=== PATIENT | female | born 2000 | race Caucasian/White ===

== ENCOUNTER 2018-07-31 19:28 | Emergency (ER) | payer OTHER, MEDICAID, SELFPAY ==
[2018-07-31 19:34] VITALS: BP 131/85; PULSE 82; RESP 14; TEMP 36.9; O2SAT 100; BMI 37.5
[2018-07-31] MEDS: ACETAMINOPHEN 325 MG TABLET 975 MG PO (19:42)
[2018-07-31] MEDS: IBUPROFEN 400 MG TABLET PO (19:42)
--- NOTE | 2018-07-31 20:10 | ED_ITS ---
HPI - URI/Sore Throat <Fabiola Lord PA-C - Last Filed: 07/31/18 22:10> General Chief Complaint: Upper Respiratory Symptoms Stated Complaint: SORE THROAT EAR IS ON FIRE LEFT Time Seen by Provider: 07/31/18 20:00 Source: patient and family Mode of arrival: ambulatory Limitations: no limitations History of Present Illness HPI Narrative: This 18-year-old female this 18-year-old female this 18-year-old female comes in due to this this 18-year-old female however this is more persistent on the left side today however this is more persistent on the left side todayThis 18 year old female comes in with her mom today due to [address], started more as scratchy and she thought allergies, however now persistently sore and hard to swallow. She states that she has felt warm at night sometimes, some sweats, none during the day and no fever. She states that for the last 3 days she has had intermittent bilateral earache, however this is more persistent in the L ear today. She denies sinus pain or TINEO, denies any cough or wheeze. No rashes or known exposures. She denies any possibility of pG and is not . Related Data Home Medications Medication Instructions Recorded Confirmed vit-iron fum-folic ac 1 cap PO QDAY #0 10/27/17 [Mynatal] Previous Rx's Medication Instructions Recorded amoxicillin 500 mg PO Q8H #20 cap 07/31/18 Allergies Allergy/AdvReac Type Severity Reaction Status Date / Time No Known Drug Allergies Allergy Verified 07/31/18 19:37 Review of Systems <Fabiola Lord PA-C - Last Filed: 07/31/18 22:10> Review of Systems All systems reviewed & are unremarkable except as noted in HPI and below Exam <Fabiola Lord PA-C - Last Filed: 07/31/18 22:10> Narrative Exam Narrative: GENERAL APPEARANCE: Patient sitting comfortably, in no distress. HEAD: No sinus TTP. EYES: PERRL, EOMI. EARS: Normal auditory canals, TMS intact with normal light reflexes. ORAL CAVITY: Normal oropharynx. THROAT: Mild erythema, no exudate NECK/THYROID: Neck supple, full range of motion, few small tender anterior cervical nodes LUNGS: Clear to auscultation bilaterally, no cough on exam. HEART: RRR without murmur, nl S1, S2, no S3 or S4. DERM: No exanthem Initial Vital Signs Initial Vital Signs: Vital Signs Temperature 98.5 F 07/31/18 19:34 Pulse Rate 82 07/31/18 19:34 Respiratory Rate 14 07/31/18 19:34 Blood Pressure 131/85 07/31/18 19:34 Pulse Oximetry 100 07/31/18 19:34 <Gil Arnold DO - Last Filed: 08/01/18 02:55> Initial Vital Signs Initial Vital Signs: Vital Signs Temperature 98.5 F 07/31/18 19:34 Pulse Rate 82 07/31/18 19:34 Respiratory Rate 14 07/31/18 19:34 Blood Pressure 131/85 07/31/18 19:34 Pulse Oximetry 100 07/31/18 19:34 Course <Fabiola Lord PA-C - Last Filed: 07/31/18 22:10> Orders Ordered: ED Orders 07/31/18 19:39 Strep Grp A by PCR Rapid Stat Discontinued Medications Acetaminophen (Tylenol) 975 mg PO NOW ONE Stop: 07/31/18 19:42 Last Admin: 07/31/18 19:42 Dose: 975 mg Amoxicillin (Trimox) 500 mg PO NOW ONE Stop: 07/31/18 20:41 Last Admin: 07/31/18 20:46 Dose: 500 mg Ibuprofen (Advil) 400 mg PO NOW ONE Stop: 07/31/18 19:42 Last Admin: 07/31/18 19:42 Dose: 400 mg Vital Signs - 8 hr 07/31/18 19:34 07/31/18 21:05 Temperature 98.5 F Pulse Rate 82 73 Respiratory Rate 14 15 Blood Pressure 131/85 Blood Pressure [Right Arm] 149/87 H Pulse Oximetry 100 100 <Gil Arnold DO - Last Filed: 08/01/18 02:55> Orders Ordered: ED Orders 07/31/18 19:39 Strep Grp A by PCR Rapid Stat Discontinued Medications Acetaminophen (Tylenol) 975 mg PO NOW ONE Stop: 07/31/18 19:42 Last Admin: 07/31/18 19:42 Dose: 975 mg Amoxicillin (Trimox) 500 mg PO NOW ONE Stop: 07/31/18 20:41 Last Admin: 07/31/18 20:46 Dose: 500 mg Ibuprofen (Advil) 400 mg PO NOW ONE Stop: 07/31/18 19:42 Last Admin: 07/31/18 19:42 Dose: 400 mg Vital Signs - 8 hr 07/31/18 19:34 07/31/18 21:05 Temperature 98.5 F Pulse Rate 82 73 Respiratory Rate 14 15 Blood Pressure 131/85 Blood Pressure [Right Arm] 149/87 H Pulse Oximetry 100 100 MDM - URI/Sore Throat <Fabiola Lord PA-C - Last Filed: 07/31/18 22:10> Lab Data Lab Results 07/31/18 Range/Units 19:39 Group A Strep (PCR) Negative <Gil Arnold DO - Last Filed: 08/01/18 02:55> Lab Data Lab Results 07/31/18 Range/Units 19:39 Group A Strep (PCR) Negative Discharge Plan Departure Patient Disposition: Home Clinical Impression: Pharyngitis Discharge Date/Time: 07/31/18 21:17 Interventions: ED Discharge Assessment Last Done: 07/31/18 21:13 Instructions: DI for Pharyngitis/Tonsillopharyngitis -- Adult Activity Restrictions/Additional Instructions: Your test for strep throat is negative, and your throat does not look typical for that. Since you have had a sore throat for several weeks now that is worsening, it is reasonable to try an antibiotic to see if this is helpful. We have given you a dose of amoxicillin for this evening and I have sent a prescription in to your pharmacy for you to continue tomorrow. Please follow- up with your PCP if this is not starting to improve in a few days, and return here if you have acutely worsening symptoms in the interim. Prescriptions: New amoxicillin 500 mg capsule 500 mg PO Q8H Qty: 20 RF: 0 No Action vit-iron fum-folic ac [Mynatal] 1 EACH capsule 1 cap PO QDAY Qty: 0 RF: 0 Referrals: Bozena Mcgrath [Primary Care Provider] -
[2018-07-31 20:32] LABS: Strep Grp A by PCR Rapid Negative
[2018-07-31] MEDS: AMOXICILLIN 250 MG CAPSULE 500 MG PO (20:46)
[2018-07-31 21:05] VITALS: BP 149/87; PULSE 73; RESP 15; O2SAT 100
== END 2018-07-31 21:17 | disposition home or self-care (01) ==
PROVIDERS: Emergency Provider Internal Medicine; Family Provider Nurse Practitioner Family; PCP Nurse Practitioner Family
DX: J02.9 Acute pharyngitis, unspecified (principal)
CPT/HCPCS: 87651; 99282; 99283

== ENCOUNTER 2018-10-27 16:49 | Emergency (ER) | payer OTHER, MEDICAID, SELFPAY ==
[2018-10-27 16:51] VITALS: BP 136/85; PULSE 77; RESP 20; TEMP 37.1; O2SAT 100; BMI 36.0
--- NOTE | 2018-10-27 17:31 | ED.LOWEXIN ---
HPI - Extremity Injury (Lower) <SCOTT Early - Last Filed: 10/27/18 22:37> General Chief Complaint: Extremity Injury, Lower Stated Complaint: ROLLED RT ANKLE Time Seen by Provider: 10/27/18 19:28 Source: patient Mode of arrival: ambulatory Limitations: no limitations History of Present Illness HPI Narrative: Healthy 18-year-old female that is a nonsmoker here for complaint of pain into her right ankle since this morning. She states she stepped off her porch accidentally rolled the ankle. She reports increased pain with movement of the right ankle. She is ambulatory to the emergency room for pain is to the medial aspect of the right ankle. She denies any other injuries or complaints at this time. Related Data Allergies Allergy/AdvReac Type Severity Reaction Status Date / Time No Known Drug Allergies Allergy Verified 07/31/18 19:37 Review of Systems <SCOTT Early - Last Filed: 10/27/18 22:37> Constitutional Denies chills, Denies fatigue, Denies fever(s), Denies lethargy and Denies weakness Eyes Denies change in vision, Denies eye discharge, Denies irritation and Denies loss of vision ENT Ears, Nose, Mouth, and Throat: Denies change in voice, Denies neck pain and Denies sore throat Cardiovascular Denies dyspnea and Denies dyspnea on exertion Respiratory Denies cough, Denies dyspnea, Denies dyspnea on exertion and Denies wheezing Gastrointestinal Gastrointestinal: Denies abdominal pain, Denies change in bowel habits, Denies diarrhea, Denies nausea and Denies vomiting Genitourinary Denies hematuria, Denies flank pain, Denies urinary incontinence and Denies urinary urgency Musculoskeletal Denies neck pain Comments: Right ankle pain Integumentary/Breasts Denies pruritus, Denies erythema, Denies rash and Denies wounds Neurologic Denies confusion, Denies loss of vision and Denies weakness Psychiatric Denies anxiety, Denies confusion, Denies depression, Denies homicidal ideation and Denies suicidal ideation Endocrine Denies fatigue and Denies flushing Hematologic/Lymphatic Denies easy bruising Allergic/Immunologic Denies wheezing Exam <SCOTT Early - Last Filed: 10/27/18 22:37> Initial Vital Signs Initial Vital Signs: Vital Signs Temperature 98.7 F 10/27/18 16:51 Pulse Rate 77 10/27/18 16:51 Respiratory Rate 20 10/27/18 16:51 Blood Pressure 136/85 10/27/18 16:51 Pulse Oximetry 100 10/27/18 16:51 Const General: cooperative and well developed Nutritional Appearance: well nourished Orientation: alert, awake, oriented x3 and not confused [facility] Mouth: oral mucosae normal and moist mucous membranes Eyes Conjunctivae: conjunctivae normal Sclera: sclerae normal Pupils: PERRL EOM: EOM intact bilaterally Chest Chest: normal inspection of the chest Cardio Rate: regular rate Rhythm: regular rhythm Heart Sounds: no click, no gallops, no murmurs and no rubs Pulses: normal peripheral pulses Skin General: no rashes or lesions noted, No jaundice and No petechiae Neuro General: alert, oriented x3, gait normal and no focal motor deficits Speech: speech normal Extrem Other: Right ankle with no signs of trauma. No swelling. No ecchymosis. No deformity. No open lesions. Distal sensation is intact. Distal range of motion is intact. Distal cap refill less than 2 sec. <Jose Francisco Breaux DO - Last Filed: 10/28/18 00:30> Initial Vital Signs Initial Vital Signs: Vital Signs Temperature 98.7 F 10/27/18 16:51 Pulse Rate 77 10/27/18 16:51 Respiratory Rate 20 10/27/18 16:51 Blood Pressure 136/85 10/27/18 16:51 Pulse Oximetry 100 10/27/18 16:51 Course <SCOTT Early - Last Filed: 10/27/18 22:37> Orders Ordered: ED Orders 10/27/18 17:36 XR ankle RT min 3V Stat Vital Signs - 8 hr 10/27/18 16:51 10/27/18 19:26 Temperature 98.7 F 98.7 F Pulse Rate 77 77 Respiratory Rate 20 20 Blood Pressure 136/85 136/85 Pulse Oximetry 100 100 <Jose Francisco Breaux DO - Last Filed: 10/28/18 00:30> Orders Ordered: ED Orders 10/27/18 17:36 XR ankle RT min 3V Stat Vital Signs - 8 hr 10/27/18 16:51 10/27/18 19:26 Temperature 98.7 F 98.7 F Pulse Rate 77 77 Respiratory Rate 20 20 Blood Pressure 136/85 136/85 Pulse Oximetry 100 100 [facility] - Extremity Injury (Lower) <SCOTT Early - Last Filed: 10/27/18 22:37> Imaging Data Right ankle: Radiologist's impression: [address] [address] XRay Report Signed Patient: Jovita Copeland LMR#: [id number] : 2000Acct:[id number] Age/Sex: 18 / FDate of Service: 10/27/18 Loc: ED Accession Number: [id number] Procedure: XR ankle RT min 3V Ordering Provider: William Kapoor PROCEDURE: XR ANKLE RT MIN 3V INDICATIONS: rolled ankle TECHNIQUE: 3 views of the ankle were acquired. COMPARISON: None. FINDINGS: Bones: No fractures or dislocations. Ankle mortise is normally aligned. No suspicious bony lesions. Soft tissues: No tibiotalar joint effusion. Achilles tendon appears normal. IMPRESSION: No fracture. No osseous lesion. If there are persistent symptoms or clinical suspicion for pathology, then repeat radiographs or advanced imaging (CT, MRI or bone scan) should be considered for further evaluation. Dictated by: Mena Bernard MD, PhD on 10/27/2018 at 18:14 Approved by: Mena Bernard MD, PhD on 10/27/2018 at 18:14 [facility] Narrative Medical decision making narrative: X-ray the right ankle was obtained was negative for any acute fractures. Signs and symptoms presents as sprain into the right ankle. She is placed in a gel splint for comfort and support along with crutches for nonweightbearing. [id number] Tylenol or Motrin as needed for any discomfort. Ice and elevation help with the swelling. Follow up with primary care provider. Return emergency room for any worsening symptoms. Discharge Plan Departure Patient Disposition: Home Clinical Impression: Sprain of ankle, right Discharge Date/Time: 10/27/18 20:00 Interventions: ED Discharge Assessment Last Done: 10/27/18 20:00 Instructions: DI for Ankle Sprain Activity Restrictions/Additional Instructions: X-ray the right ankle was obtained was negative for any acute fractures. Signs and symptoms presents as sprain into the right ankle. You are placed in a splint for comfort and support along with crutches for nonweightbearing. Use as directed until able to ambulate without any discomfort [id number] Tylenol or Motrin as needed for any discomfort. Ice and elevation help with the swelling. Follow up with primary care provider. Return emergency room for any worsening symptoms. Referrals: Bozena Mcgrath [Primary Care Provider] - <Jose Francisco Breaux DO - Last Filed: 10/28/18 00:30> Cosign ED Attending Niesha Attestation: I was available for consultation during this patient's emergency department encounter
--- NOTE | 2018-10-27 17:36 | DI.RAD.S_ITS ---
PROCEDURE: XR ANKLE RT MIN 3V INDICATIONS: rolled ankle TECHNIQUE: 3 views of the ankle were acquired. COMPARISON: None. FINDINGS: Bones: No fractures or dislocations. Ankle mortise is normally aligned. No suspicious bony lesions. Soft tissues: No tibiotalar joint effusion. Achilles tendon appears normal. IMPRESSION: No fracture. No osseous lesion. If there are persistent symptoms or clinical suspicion for pathology, then repeat radiographs or advanced imaging (CT, MRI or bone scan) should be considered for further evaluation. Dictated by: Mena Bernard MD, PhD on 10/27/2018 at 18:14 Approved by: Mena Bernard MD, PhD on 10/27/2018 at 18:14
[2018-10-27 19:26] VITALS: BP 136/85; PULSE 77; RESP 20; TEMP 37.1; O2SAT 100; BMI 36.0
== END 2018-10-27 20:00 | disposition home or self-care (01) ==
PROVIDERS: Emergency Provider Nurse Practitioner Family; Family Provider Nurse Practitioner Family; PCP Nurse Practitioner Family
DX: S93.401A Sprain of unspecified ligament of right ankle, initial encounter (principal); W18.43XA Slipping, tripping and stumbling without falling due to stepping from one level to another, initial encounter
CPT/HCPCS: 73610; 99282; 99283